=== PATIENT | male | born 1995 | race Two or more races ===

== ENCOUNTER → 2019-06-07 | Emergency (ER) | payer OTHER ==
[~2019-06-07] VITALS: Ht 170.2 cm; Wt 59.0 kg
[~2019-06-07] MED LIST: MORPHINE SULFATE 4 MG/ML SYR/VIAL IV ONE; PANTOPRAZOLE 40 MG/10 ML VIAL INJ IV STA; PROCHLORPERAZINE EDISYLATE 5 MG/ML 2ML VIAL IV ONE; SODIUM CHLORIDE 0.9% 1,000 ML IVB ONE
[2019-06-07 12:06] LABS: Basophils # (auto) 0 10 ^3/uL (0-0.2); Basophils % (auto) 0.2 % (0.0-2.0); Eosinophils # (auto) 0 10 ^3/uL (0-0.8); Hematocrit 39.7 % (41.0-53.0); Hemoglobin 13.7 g/dL (13.5-17.5); Lymphocytes # (auto) 0.7 10 ^3/uL (0.4-5.4); Lymphocytes % (auto) 6.6 % (10.0-50.0); Mean Corpuscular Hemoglobin 31.8 pg (28.0-32.0); Mean Corpuscular Hgb Conc. 34.4 g/dL (32.0-36.0); Mean Corpuscular Volume 92.4 fL (80.0-100.0); Monocytes # (auto) 0.3 10 ^3/uL (0-1.3); Monocytes % (auto) 2.6 % (0.0-12.0); Neutrophils # (auto) 9.6 10 ^3/uL (1.6-8.6); Neutrophils % (auto) 90.6 % (37.0-80.0); Platelet Count (auto) 235 10^3/uL (140-450); Red Cell Distribution Width 12.9 % (11.8-14.3); White Blood Cell 10.6 10^3/uL (4.4-10.8)
[2019-06-07 12:22] LABS: Albumin 4.4 g/dL (3.4-5.0); Calcium 9.2 mg/dL (8.5-10.1); Potassium 3.5 mmol/L (3.5-5.1)
[2019-06-07 12:26] LABS: BUN/Creatinine Ratio 10.9; Bilirubin, Total 1.1 mg/dL (0.2-1.0); Total Protein 8.5 g/dL (6.4-8.2)
[2019-06-07 12:32] LABS: Amphetamine Screen, Urine NEGATIVE (NEGATIVE); Barbiturate Scree,Urine NEGATIVE (NEGATIVE); Benzodiazephine Screen, Urine NEGATIVE (NEGATIVE); Cannabinoid Screen, Urine POSITIVE (NEGATIVE); Cocaine Screen, Urine NEGATIVE (NEGATIVE); Opiate Scree,Urine NEGATIVE (NEGATIVE); Phencyclidine Screen, Urine NEGATIVE (NEGATIVE)
[2019-06-07 14:01] VITALS: BP 111/53
== END | disposition home or self-care (01) ==
LOC: ER 11:43
DX: F12.988 Cannabis use, unspecified with other cannabis-induced disorder (principal); R11.2 Nausea with vomiting, unspecified
CPT/HCPCS: 36415; 80053; 80307; 83690; 85025; 96361; 96374; 96375; 99284; C9113; J0780; J7030

== ENCOUNTER 2024-07-16 15:54 | Emergency (ER) | payer MEDICAID, OTHER ==
[~2024-07-16] VITALS: Ht 172.7 cm; Wt 70.4 kg
--- NOTE | 2024-07-16 16:35 | DVH ---
CLINICAL INDICATION: FALL/PAIN TECHNIQUE: 3 radiographic views of the left knee were obtained. Comparison: None FINDINGS/IMPRESSION: There is no evidence of acute fracture or dislocation. The visualized joint space is well maintained. The alignment is anatomical. There is no radiopaque foreign body. HS:Y
--- NOTE | 2024-07-16 16:42 | ED.PDOC ---
History of Present Illness HPI Comments 28-year-old male presents to the ER in a wheelchair being pushed by significant other and with no prior medical history associated with a chief complaint of left knee pain. Patient reports the they are moving at the house, and with boxes being on the floor the patient tripped and fell landing on his left knee and having pain, swelling and redness. Patient states that he is able to bear weight on the extremity but he is unable to bend the leg. Denies chills, fever, N/V/D, SOB, CP. No other associated symptoms, modifiers, recent injuries or sick contacts present at this time. Chief Complaint: Lower Extremity Time Seen by MD: 16:30 Primary Care Provider: NONE Reviewed Notes: Nurses Notes, Medications, Allergies Allergies: Coded Allergies: NO KNOWN ALLERGIES (Unverified , 06/07/19) Information Source: Patient, Significant Other Mode of Arrival: Wheelchair Severity: Moderate Timing: Minutes Duration: Since onset, Minutes Prehospital treatment: None Past Medical History PAST MEDICAL HISTORY: Denies Surgical History: Denies all surgeries Family History Family History: Reviewed,noncontributory to illness, Unknown Social History Smoker: Non-Smoker Alcohol: Denies ETOH Use Drugs: Denies Drug Use Lives In: Home Constitutional: reports: others (Left knee pain with light erythema status post fall); denies: chills, diaphoresis, fatigue, fever, malaise, sweats, weakness EENTM: denies: blurred vision, double vision, ear bleeding, ear discharge, ear drainage, ear pain, ear ringing, eye pain, eye redness, hearing loss, mouth pain, mouth swelling, nasal discharge, nose bleeding, nose congestion, nose pain, photophobia, tearing, throat pain, throat swelling, voice changes, others Respiratory: denies: cough, hemoptysis, orthopnea, SOB at rest, shortness of breath, SOB with excertion, stridor, wheezing, others Cardiovascular: denies: chest pain, dizzy spells, diaphoresis, Dyspnea on exertion, edema, irregular heart beat, left arm pain, lightheadedness, palpitations, PND, syncope, others Gastrointestinal: denies: abdomen distended, abdominal pain, blood streaked bowels, constipated, diarrhea, dysphagia, difficulty swallowing, hematemesis, melena, nausea, poor appetite, poor fluid intake, rectal bleeding, rectal pain, vomiting, others Genitourinary: denies: burning, dysuria, flank pain, frequency, hematuria, incontinence, penile discharge, penile sore, pain, testicle pain, testicle swelling, urgency, others Neurological: denies: dizziness, fainting, headache, left sided numbness, left sided weakness, numbness, paresthesia, pre-existing deficit, right sided numbness, right sided weakness, seizure, speech problems, tingling, tremors, weakness, others Musculoskeletal: reports: others (Left knee pain); denies: back pain, gout, joint pain, joint swelling, muscle pain, muscle stiffness, neck pain Integumetry: denies: bruises, change in color, change in hair/nails, dryness, laceration, lesions, lumps, rash, wounds, others Allergic/Immunocompromised: denies: Difficulty Healing, Frequent Infections, Hives, Itching, others Hematologic/Lymphatic: denies: anemia, blood clots, easy bleeding, easy bruising, swollen glands, others Endocrine: denies: excessive hunger, excessive sweating, excessive thirst, excessive urination, flushing, intolerance to cold, intolerance to heat, unexplained weight gain, unexplained weight loss, others Psychiatric: denies: anxiety, bipolar disorder, depression, hopeless, panic disorder, schizophrenia, sleepless, suicidal, others All Other Systems: Reviewed and Negative Physical Exam General Appearance: Moderate Distress (Due to left knee pain), Normal HEENT: Normal ENT Inspection, Pharynx Normal, TMs Normal Neck: Full Range of Motion, Non-Tender, Normal, Normal Inspection Respiratory: Chest Non-Tender, Lungs Clear, No Accessory Muscle Use, No Respiratory Distress, Normal Breath Sounds Cardiovascular: No Edema, No JVD, No Murmur, No Gallop, Normal Peripheral Pulses, Regular Rate/Rhythm Breast Exam: Deferred Gastrointestinal: No Organomegaly, Non Tender, No Pulsatile Mass, Normal Bowel Sounds, Soft Genitalia: Deferred Pelvic: Deferred Rectal: Deferred Extremities: Other (Diffuse anterior left knee pain throughout the patella and tibial tuberosity region. Mild edema noted. No ecchymosis. Moderate reduced range of motion. Patient can not bear weight comfortably.) Musculoskeletal : Apperance: Normal Neurologic: Alert, No Motor Deficits, Normal Affect, Normal Mood, No Sensory Deficits Cerebellar Function: Normal Reflexes: Normal Skin: Dry, Normal Color, Warm Lymphatic: No Adenopathy Was a procedure done? Was a procedure done?: No Differential Dx Considerations may include: Knee contusion, tibial plateau fracture, patellar fracture X-Ray, Labs, Meds, VS Vital Signs Date Time Temp Pulse Resp B/P (MAP) Pulse Ox O2 Delivery O2 Flow Rate FiO2 07/16/24 16:52 82 17 95 Room Air 07/16/24 16:52 98.0 82 17 129/56 (80) 95 98.0 07/16/24 16:04 100.0 104 18 111/56 (74) 95 100.0 Current Medications Medications (Trade) Dose Ordered Sig/Michelle Route Start Time Stop Time Status Last Admin Acetaminophen/ Hydrocodone Bitart ([place] 5/325MG Tab) 1 tab ONCE ONCE PO 07/16/24 16:45 07/16/24 16:46 DC 07/16/24 16:59 Ketorolac Tromethamine (Toradol Injection) 30 mg ONCE ONCE IM 07/16/24 16:45 07/16/24 16:46 DC 07/16/24 17:00 [place] [id number] Ph: [phone] DIAGNOSTIC IMAGING Diagnostic Imaging Report : [id number] Signed PATIENT: SANJUANITA FOLEYCCT: [id number] UNIT: [id number] : 1995 LOC: ER ROOM / BED: / AGE / SEX: 28 / M ADM STATUS: REG ER SERVICE 1603 ORDERING PHYSICIAN: TIA BLANC PAC PROCEDURE(s): LKNE3 - L KNEE 3V XRAY REASON: FALL/PAIN ORDER NUMBER(s): [id number], ACCESSION NUMBER(s): [id number] CLINICAL INDICATION: FALL/PAIN TECHNIQUE: 3 radiographic views of the left knee were obtained. Comparison: None FINDINGS/IMPRESSION: There is no evidence of acute fracture or dislocation. The visualized joint space is well maintained. The alignment is anatomical. There is no radiopaque foreign body. HS:Y ATED BY: HUNG SHELBY Jr., DO DICTATED DATE/TIME: 07/16/24 1633 SIGNED BY: HUNG SHELBY Jr., DO SIGNED DATE/TIME: 07/16/24 1633 CC: X-Ray, Labs, Meds, VS Comment All studies performed the ED were evaluated by me personally. Imaging studies were unremarkable for any fractures of the knee or patella. Patient is provided with a an Jovanny wrap and crutches. Patient has been advised to utilize pain medication as well as ice therapy. Time of 1ST Reevaluation: 17:17 Reevaluation 1ST: Improved Consultation: PCP Patient Education/Counseling: Diagnosis, Treatment, Prognosis Family Education/Counseling: Diagnosis, Treatment, Prognosis Departure 1 Departure Time of Disposition: 17:17 Impression: Primary Impression: Knee contusion Disposition: HOME / SELF CARE / HOMELESS Condition: Stable Additional Instructions: Advised patient utilize pain medication as needed as well as ice therapy. Patient should utilize the Jovanny wrap and crutches as long as it aid in the healing process. e-Prescriptions Hydrocodone-Acetaminophen (Hydrocodone Bitartrate/AC 5-325 mg) 1 Tab Tab 1 TAB PO Q6HP PRN, #15 TAB Prov: TIA BLANC PAC 07/16/24 Ibuprofen Micronized (Ibuprofen) 800 Mg Tab 800 MG PO Q8HP PRN, #20 TAB Prov: TIA BLANC PAC 07/16/24 Discharged With: Self, Friend Critical Care Note Critical Care Time?: No Stability Stability form required: No Heart Score Heart Score: Heart Score Response (Comments) Value History N/A 0 EKG N/A 0 Age N/A 0 Risk Factors N/A 0 Troponin N/A 0 Total 0 I personally scribed for TIA BLANC PAC ([email or web address]) on 07/16/24 at 16:42. Electronically submitted by Ronn Gil ([employer]). I personally scribed for TIA BLANC PAC ([email or web address]) on 07/16/24 at 16:44. Electronically submitted by Ronn Gil ([employer]). TIA BLANC PAC July 16, 2024 16:42
[2024-07-16 16:52] VITALS: BP 129/56; PULSE 82; RESP 17; TEMP 98; O2SAT 95
[2024-07-16] MEDS: HYDROcodone-ACET 5/325MG TAB PO ONE (16:59)
[2024-07-16] MEDS: KETOROLAC TROMETH 60MG/2ML VIAL IM ONE (17:00)
[2024-07-16] MEDS ORDERED: HYDR-4902 PO (17:21)
[2024-07-16] MEDS ORDERED: IBUP-1455 PO (17:21)
== END 2024-07-16 17:34 | disposition home or self-care (01) ==
LOC: ER 15:54
DX: S80.02XA Contusion of left knee, initial encounter (principal); W01.0XXA Fall on same level from slipping, tripping and stumbling without subsequent striking against object, initial encounter; Y93.89 Activity, other specified; Y92.89 Other specified places as the place of occurrence of the external cause; Y99.8 Other external cause status
CPT/HCPCS: 73562; 96372; 99283; J1885